=== PATIENT | female | born 1975 | race Caucasian/White ===

== ENCOUNTER 2017-03-19 12:44 | Outpatient (CLI) | payer OTHER ==
--- NOTE | 2017-03-19 14:00 | CT ---
CT ABDOMEN NONCONTRAST CT PELVIS NONCONTRAST: (urolithiasis protocol) DATE: 03/19/17 HISTORY: 41-year-old female with right flank pain for days. COMPARISON: None. TECHNIQUE: IV injection of iodinated contrast media: none Oral contrast media: none FINDINGS: Other than for urolithiasis, the lack of IV and oral contrast limits the evaluation. At the L5-S1 level, there is a segment of the right mid ureter that is dilated to approximately 10 mm caliber, has mildly thickend nichols, and is surrounded by periureteral fat stranding representing sami ma. There is no evidence of dilation of the rest of the ureter, although the ureter distal to this po int is difficult to visualize. There is no dilation of the bilateral renal collecting systems, althou gh there is mild fat stranding in the right renal sinus consistent with mild edema. There are no melissa l, ureteral, or bladder calculi. There are two tiny calcifications in the right hemipelvis, which are probably phleboliths rather than ureteral calculi. Bilateral Essure fallopian tubal closure devices are present. Normal urinary bladder. Small amount of free fluid in the cul-de-sac in the pelvis. No s igns of acute colonic diverticulitis. Normal appendix. No small bowel dilation. Within the limitation s of noncontrast scan, no gross pathology is identified involving the left kidney, abdominal aorta, a drenals, liver, spleen, or pancreas. Lung bases are grossly clear. No pneumoperitoneum. IMPRESSION: 1. Edema consistent with inflammatory changes of the right renal sinus, and especially involving a s hort dilated segment of right mid ureter that has mural thickening, but without evidence of urolithia sis. Etiology of this is uncertain. One possibility is a ureteral infection. Recommend urology consul tation. 2. Bilateral Essure fallopian tube closure devices. 3. No hydronephrosis. HASEEB Hall POS: MISTY
[2017-03-19 15:18] LABS: Bilirubin Small (Negative); Blood, Urine Moderate (Negative); Glucose, Urine (Dipstick) Negative (Negative); Ketone, Urine 80 mg/dL (Negative); Nitrite Negative (Negative); Protein, Urine (Dipstick) 100 mg/dL (Neg-Trace)
[2017-03-19 15:20] LABS: Bacteria/HPF 4+ HPF (None Seen); Hyaline Casts/LPF 7-10 HYALINE CAST LPF (0-3 Hyaline)
[2017-03-19 15:34] LABS: Yeast-All Forms None Seen HPF (None Seen)
== END 2017-03-19 12:45 | disposition home or self-care (01) ==
LOC: CT 12:44
PROVIDERS: ATTEND Urology
DX: N23 Unspecified renal colic (principal); N12 Tubulo-interstitial nephritis, not specified as acute or chronic; N28.89 Other specified disorders of kidney and ureter; Z97.5 Presence of (intrauterine) contraceptive device
CPT/HCPCS: 74176; 81001; 87077; 87086; 87186